=== PATIENT | male | born 1975 | race Caucasian/White ===

== ENCOUNTER 2019-05-21 15:58 | Emergency (ER) | payer BC, OTHER | END 2019-05-21 16:55 | disposition home or self-care (01) | LOC: NAV ERS 15:58 | DX: L55.1 Sunburn of second degree (principal); E03.9 Hypothyroidism, unspecified; F41.9 Anxiety disorder, unspecified; Z87.891 Personal history of nicotine dependence | CPT/HCPCS: 99282 ==

== ENCOUNTER 2020-11-05 18:40 | Emergency (ER) | payer BC ==
[2020-11-05] MEDS ORDERED: Sodium Chloride 0.9% 1,000 ML ONE (19:26)
[2020-11-05] MEDS ORDERED: Morphine 4 MG/ML VIAL ONE ×3 (19:26→23:01)
[2020-11-05] MEDS ORDERED: Ondansetron PF 4 MG/2 ML Vial ONE ×2 (19:26→23:24)
[2020-11-05 19:28] LABS: #Eosinphils 0.2 thou/uL (0.0-0.7); #Lymphocytes 1.6 thou/uL (1.20-3.40); #Monocytes 0.7 thou/uL (0.11-0.59); #Neutrophils 7.3 thou/uL (1.40-6.50); %Basophils 0.5 % (0.0-1.0); %Eosinophils 1.8 % (0.0-10.0); %Lymphocytes 16.3 % (21.0-51.0); %Monocytes 6.8 % (0.0-10.0); %Neutrophils 74.6 % (42.0-75.0); Hemoglobin 16.7 g/dL (14.0-18.0); Mean Corpuscular HGB CONC 33.3 g/dL (32.0-36.0); Mean Corpuscular Hemoglobin 29.8 pg (27.0-31.0); Mean Corpuscular Volume 89.5 fL (78.0-98.0); Mean Platelet Volume 6.9 fL (7.4-10.4); Platelet Count 206 thou/uL (130-400); Red Blood Cell (RBC) Count 5.59 mill/uL (4.70-6.10); White Blood Cell (WBC) Count 9.7 thou/uL (4.8-10.8)
[2020-11-05 19:44] LABS: ALT (SGPT) 27 U/L (8-55); AST (SGOT) 22 U/L (5-34); Albumin 4.3 g/dL (3.5-5.0); Alkaline Phosphatase 50 U/L (40-110); Anion Gap 17 mmol/L (10-20); BUN (Urea Nitrogen) 14 mg/dL (8.9-20.6); Calc. Creatinine Clearance 0 mL/min (70-130); Calcium 9.8 mg/dL (7.8-10.44); Carbon Dioxide 23 mmol/L (22-29); Chloride 101 mmol/L (98-107); Globulin 3.3 g/dL (2.4-3.5); Glucose 97 mg/dL (70-105); Lipase 28 U/L (8-78); Potassium 3.8 mmol/L (3.5-5.1); Protein, Total 7.6 g/dL (6.0-8.3); Sodium 137 mmol/L (136-145)
[2020-11-05 21:22] LABS: Bilirubin Small (Negative); Blood, Urine Negative (Negative); Clarity Clear (Clear); Glucose, Urine (Dipstick) Negative (Negative); Ketone, Urine > or equal to 80 mg/dL (Negative); Leukocyte Negative (Negative); Nitrite Negative (Negative); Protein, Urine (Dipstick) Negative (Neg-Trace); Urobilinogen 0.2 mg/dL (Less than 2)
--- NOTE | 2020-11-05 22:07 | CT ---
EXAM: CT ABDOMEN AND PELVIS HISTORY: Lap band removal. Persistent pain. COMPARISON: 04/19/2020 at assess by your imaging Center [facility] Procedure: Multiple contiguous axial images were obtained and a CT of the abdomen and pelvis with IV contrast. C oronal reformats were performed. FINDINGS: Lower Chest: Scarring and atelectasis Vessels: Normal caliber aorta Heart: Normal heart size. No significant pericardial fluid Abdomen: Portal vein:Patent Gallbladder: No calcified gallstones. Normal caliber wall. Liver: within normal limits. Pancreas: within normal limits. Spleen: within normal limits. Adrenals: within normal limits. Kidneys: Symmetric enhancement. No obstructive uropathy. Peritoneum: There is stranding of the abdominal mesentery suggesting mild fluid and edema. Bowel: Limited evaluation due to lack of complete oral contrast opacification. There are prominent fl uid-filled and contrast-filled loops of proximal and mid small bowel. There is a ventral abdominal wall hernia containing segments of small bowel through the defect. The eighth. Loops are dilated. The efferent loops are decompressed suggesting a component of incarceration. There is stranding of the associated overlying subcutaneous fat with small pockets of air. Mesentery and Retroperitoneum: No enlarged mesenteric or retroperitoneal lymph nodes. Abdominal Wall: Ventral abdominal wall hernia containing mesentery and in segment of small bowel. The re is associated punctate pockets of subcutaneous emphysema which are presumed to be iatrogenic. Pelvis: Reproductive Organs: Reproductive organs are unremarkable. Pelvis: No mass, lymphadenopathy, free air or free fluid. Bladder: within normal limits. Bones: within normal limits. IMPRESSION: 1. Anterior abdominal hernia with associated incarceration. There is associated bowel obstruction. Ge neral surgical consultation is recommended. Results of study discussed with Dr. Rivera 11/05/2020 at 10:07 PM Code CR
== END 2020-11-05 23:49 | disposition short-term general hospital (02) ==
LOC: NAV ERS 18:40
DX: K43.6 Other and unspecified ventral hernia with obstruction, without gangrene (principal); K56.609 Unspecified intestinal obstruction, unspecified as to partial versus complete obstruction; E03.9 Hypothyroidism, unspecified; Z87.891 Personal history of nicotine dependence
CPT/HCPCS: 74177; 80053; 81003; 83605; 83690; 84484; 85025; 93005; 94760; 96374; 96375; 96376; J2270; J2405; J7050

== ENCOUNTER 2022-08-29 06:12 | Emergency (ER) | payer BC | END 2022-08-29 07:33 | disposition home or self-care (01) | LOC: NAV ERS 06:12 | DX: S86.912A Strain of unspecified muscle(s) and tendon(s) at lower leg level, left leg, initial encounter (principal); E03.9 Hypothyroidism, unspecified; Z87.891 Personal history of nicotine dependence; X50.1XXA Overexertion from prolonged static or awkward postures, initial encounter ==